=== PATIENT | female | born 2000 | race African-American/Black ===

== ENCOUNTER 2021-08-07 20:25 | Emergency (ER) | payer OTHER, SELFPAY ==
[2021-08-07 21:37] LABS: SARS-CoV-2 NAA Rapid Test Not Detected (NotDetected)
== END 2021-08-07 22:27 | disposition home or self-care (01) ==
LOC: CSHERS 20:25
DX: B34.9 Viral infection, unspecified (principal); R09.81 Nasal congestion; Z20.822 Contact with and (suspected) exposure to COVID-19
CPT/HCPCS: 99283

== ENCOUNTER 2021-09-19 06:13 | Emergency (ER) | payer OTHER | END 2021-09-19 07:04 | disposition home or self-care (01) | LOC: CSHERS 06:13 | DX: U07.1 COVID-19 (principal) | CPT/HCPCS: 99283; U0003; U0005 ==

== ENCOUNTER 2021-11-15 17:31 | Emergency (ER) | payer OTHER | END 2021-11-15 22:00 | disposition home or self-care (01) | LOC: CSHERS 17:31 | DX: J10.1 Influenza due to other identified influenza virus with other respiratory manifestations (principal) | CPT/HCPCS: 87804; 99284 ==

== ENCOUNTER 2022-04-25 12:12 | Emergency (ER) | payer OTHER ==
[2022-04-25] MEDS ORDERED: Ondansetron ODT 4 MG TAB ONE (13:32)
== END 2022-04-25 15:01 | disposition home or self-care (01) ==
LOC: CSHERS 12:12
DX: R19.7 Diarrhea, unspecified (principal)
CPT/HCPCS: 99283; Q0162